=== PATIENT | female | born 1980 | race African-American/Black ===

== ENCOUNTER 2017-05-01 13:29 | Observation (INO) | payer MEDICAID ==
[~2017-05-01] VITALS: Ht 163.8 cm; Wt 72.6 kg
== END 2017-05-01 16:30 | disposition home or self-care (01) ==
LOC: L&D 13:29
PROVIDERS: ADMIT Obstetrics & Gynecology; ATTEND Obstetrics & Gynecology
DX: O26.893 Other specified pregnancy related conditions, third trimester (principal); M79.602 Pain in left arm; Z3A.28 28 weeks gestation of pregnancy
CPT/HCPCS: 76805; 76818; 99281; G0378